=== PATIENT | male | born 1955 | race Caucasian/White ===

== ENCOUNTER 2020-04-19 19:56 | Emergency (ER) | payer OTHER ==
[~2020-04-19] VITALS: Ht 188 cm; Wt 123.0 kg
[~2020-04-19 19:56] MED LIST: LEVO150T5 PO; LISI-167 PO; METO50TA82 PO; PARO20TA4 PO
[2020-04-19] MEDS ORDERED: LABETALOL 5MG/ML, 20ML IVPush ONE (21:00)
[2020-04-19] MEDS ORDERED: LORazepam 1MG TABLET PO ONE (21:00)
[2020-04-19] MEDS ORDERED: LORazepam 1MG TABLET ONE (21:20)
[2020-04-19 21:26] LABS: LYMPHOCYTES % (AUTO) 15 % (22-44); MEAN CORPUSCULAR HEMOGLOBIN 28.4 pg (27.5-34.5); MEAN CORPUSCULAR HGB CONC 33.7 g/dL (33.2-36.2); MEAN PLATELET VOLUME 10.1 fL (7.4-10.4); NEUTROPHILS % (AUTO) 79 % (42-75); PLATELET COUNT 259 x10^3/uL (130-400); RED BLOOD COUNT 5.41 x10^6/uL (4.38-5.82); RED CELL DISTRIBUTION WIDTH 14.1 % (9.4-14.8)
[2020-04-19 21:27] LABS: BASOPHILS % (AUTO) 0 % (0-1); EOSINOPHILS % (AUTO) 1 % (1-7); MONOCYTES % (AUTO) 5 % (2-9)
[2020-04-19 21:28] LABS: MD NO
--- NOTE | 2020-04-19 21:34 | NUR ---
PT REFUSED PIV AND MEDS. PT STATES COUGHING HAS SUBSIDED AND IS READY TO GO HOME. PT AGREES TO STAY TO SPEAK WITH MD.
[2020-04-19 21:37] LABS: ALANINE AMINOTRANSFERASE 20 U/L (12-78); ALBUMIN 4.1 g/dL (3.4-5.0); ANION GAP 6 mmol/L (5-15); CALCIUM 9.4 mg/dL (8.5-10.1); CHLORIDE 105 mmol/L (98-107); CREATININE 1.58 mg/dL (0.7-1.3)
[2020-04-19 21:39] LABS: ALKALINE PHOSPHATASE 93 U/L (45-117); BILIRUBIN,TOTAL 0.4 mg/dL (0.2-1.0); TOTAL PROTEIN 7.7 g/dL (6.4-8.2)
[2020-04-19 22:09] VITALS: BP 223/199
== END 2020-04-19 22:11 | disposition left against medical advice (07) ==
LOC: ED 20:26
DX: N28.9 Disorder of kidney and ureter, unspecified (principal); R04.2 Hemoptysis; R11.2 Nausea with vomiting, unspecified; I44.0 Atrioventricular block, first degree; I10 Essential (primary) hypertension
CPT/HCPCS: 36415; 80053; 85025; 93005; 99284